=== PATIENT | female | born 1980 | race Caucasian/White ===

== ENCOUNTER 2017-05-11 23:10 | Emergency (ER) | payer OTHER ==
[~2017-05-11] VITALS: Ht 160 cm; Wt 65.0 kg
[2017-05-11 23:13] VITALS: BP 114/61; PULSE 106; RESP 16; TEMP 98.9; O2SAT 99
[2017-05-11] MEDS ORDERED: HUMALOG SQ (23:29)
[2017-05-11] MEDS ORDERED: MULTTAB20 (23:29)
[2017-05-11] MEDS ORDERED: EMTR1TAB PO (23:29)
[2017-05-11] MEDS ORDERED: SYNT175T PO (23:29)
[2017-05-11] MEDS ORDERED: FISH1000 (23:29)
[2017-05-11] MEDS ORDERED: DOXY10TA (23:32)
[2017-05-12] MEDS ORDERED: SODIUM CHLOR 0.9% 1000 ML INJ 1,000 ML IV ONE (00:30)
[2017-05-12 00:55] LABS: AUTOMATED NEUTROPHIL # 6.6 TH/MM3 (1.8-7.7); BASOPHIL % 0.3 % (0.0-2.0); EOSINOPHIL # 0.2 TH/MM3 (0-0.4); EOSINOPHIL % 1.8 % (0.0-4.0); HEMATOCRIT 36.1 % (35.0-46.0); HEMO FLAGS DIFF FINAL; LYMPH % 29.5 % (9.0-44.0); LYMPHOCYTE # 3.1 TH/MM3 (1.0-4.8); MEAN CELL VOLUME 95.6 FL (80.0-100.0); MEAN CORPUSCULAR HEMOGLOBIN 33.4 PG (27.0-34.0); MEAN CORPUSCULAR HGB CONC 34.9 % (32.0-36.0); MONO % 5.2 % (0.0-8.0); NEUT % 63.2 % (16.0-70.0); PLATELET COUNT 273 TH/MM3 (150-450); RED BLOOD COUNT 3.78 MIL/MM3 (4.00-5.30); RED CELL DISTRIBUTION WIDTH 12.9 % (11.6-17.2); WHITE BLOOD COUNT 10.5 TH/MM3 (4.0-11.0)
[2017-05-12 00:56] LABS: INTERNATIONAL NORMALIZED RATIO 0.8 RATIO; PROTHROMBIN TIME - PATIENT 9.2 SEC (9.8-11.6)
[2017-05-12 01:05] LABS: ALT (GPT) 23 U/L (10-53); ANION GAP 4 MEQ/L (5-15); AST (GOT) 21 U/L (15-37); BICARBONATE 28.9 MEQ/L (21.0-32.0); BLOOD UREA NITROGEN 6 MG/DL (7-18); CHLORIDE 104 MEQ/L (98-107); GLOMERULAR FILTRATION RATE 121 ML/MIN (>89); POTASSIUM 3.5 MEQ/L (3.5-5.1); SODIUM (NA) 137 MEQ/L (136-145)
[2017-05-12 01:06] LABS: ALKALINE PHOSPHATASE 86 U/L (45-117); TOTAL BILIRUBIN ADULT 0.1 MG/DL (0.2-1.0)
[2017-05-12 01:29] LABS: BETA HCG QUANT 179713 MIU/ML (0-5)
[2017-05-12 03:29] LABS: CHLAMYDIA PCR NOT DETECTED (NOT DETECT); NEISSERIA PCR NOT DETECTED (NOT DETECT)
--- NOTE | 2017-05-12 03:33 | RADRPT ---
EXAM DATE/TIME: 05/12/2017 02:24 [place] COMPARISON: No previous studies available for comparison. INDICATIONS : Bleeding with . LAB(S): Beta-hC MEDICAL HISTORY : . Miscarriage x 2. Thyroid disease. Diabetes. SURGICAL HISTORY : Dilation and curettage. Hysterscopy with polyp removal. ENCOUNTER: Initial ACUITY: 1 day PAIN SCORE: 0/10 LOCATION: Bilateral pelvis MEASUREMENTS: UTERUS: 15.1 x 10.1 x 8.5 cm ENDOMETRIAL STRIPE: >20 mm RIGHT OVARY: Non visualized LEFT OVARY: 2.6 x 2.0 x 1.5 cm FREE FLUID: No CROWN RUMP LENGTH: 4.9 cm = 11 WKS 5 DAYS FHR: 163 BPM FINDINGS: UTERUS: Intrauterine estimated at 11 weeks 5 days. Yolk sac present. heart tones and 63 beats per minute. RIGHT OVARY: Right ovary not visualized. LEFT OVARY: Ovary contains no mass or significant cystic lesion. MISCELLANEOUS: No free fluid. CONCLUSION: 1. Intrauterine estimated 11 weeks 5 days. 2. Nonvisualization right ovary. Austin Bob MD on May 12, 2017 at 3:29 Board Certified Radiologist. This report was verified electronically.
[2017-05-12 03:40] LABS: BLOOD, URINE SMALL (NEG); GLUCOSE,URINE 70 mg/dL (NEG); KETONE, URINE NEG (NEG); NITRITE,URINE NEG (NEG); SQUAMOUS EPITHELIAL CELL URINE 1 /hpf (0-5); TRANSITIONAL EPI CELLS, URINE <1 /hpf; URINE COLOR COLORLESS (YELLW/STRAW)
[2017-05-12 03:41] LABS: COMMENT (UR) CULT NOT INDICATED; CULTURE IF INDICATED CULT NOT INDICATED
--- NOTE | 2017-05-12 04:01 | PD ---
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 And also notes some lower abdominal cramping and denies fever chill vomiting. She also denies vaginal discharge but does note some discomfort with urination. (Kayla Mohr MD) PFSH Past Medical History Diabetes: Yes Patient Takes Glucophage: No Thyroid Disease: Yes ?: : 3 Miscarriage: 2 Dilation and Curettage (D&C): Yes (Kayla Mohr MD) Past Surgical History Other Surgery: Yes (historoscopy) (Kayla Mohr MD) Social History Alcohol Use: Yes ( not now while ) Tobacco Use: No Substance Use: No (Kayla Mohr MD) Allergies-Medications (Allergen,Severity, Reaction): Coded Allergies: No Known Allergies (Unverified , 05/11/17) Reported Meds & Prescriptions Reported Meds & Active Scripts Active Tylenol (Acetaminophen) 325 Mg Tab 650 Mg PO Q4H PRN Metrogel Vaginal Gel (Metronidazole Vaginal Gel) 0.75 % Gel 1 Appl VAGINAL HS 5 Days Reported Diclegis (Doxylamine-Pyridoxine) 10-10 Mg Tab Fish Oil ([place]-3 Fatty Acids) 1,000 Mg Cap Multi 27-0.8 mg ( Vit W/ Ferrous Fumara) 1 Tab Tab Truvada (Emtricitabine-Tenofovir Disoproxil Fumarate) 200-300 Mg Tab 1 Tab PO DAILY Synthroid (Levothyroxine Sodium) 175 Mcg Tab 175 Mcg PO DAILY Humalog Inj (Insulin Human Lispro) 1,000 Unit/10 Ml Vial 1-9 Units SQ ACHS Max dose at bedtime:( )units; sugars< 70,(0)units; sugars 150-199,(1)unit; sugars 200-249,(3)units; sugars 250-299,(5)units; sugars 300-349,(7)units; sugars more than 349,(9)units. (Marilu Ying MD) Review of Systems ROS Limitations: Clinical Condition General / Constitutional: No: Fever, Chills, Weight Gain, Weight Loss, Other Eyes: No: Diploplia, Blurred Vision, Photophobia, Drainage, Redness, Foreign Body Sensation, Pain, Tearing, Blind Spots, Visual changes, Blindness, Other HENT: No: Headaches, Vertigo, Lightheadedness, Sore Throat, Rhinitis, Rhinorrhea, Congestion, Nosebleed, Neck Stiffness, Neck Pain, Masses, Gingival Bleeding, Dental Difficulties, Ear Discharge, Earache, Other Cardiovascular: No: Chest Pain or Discomfort, Palpitations, Irregular Rhythm, Tachycardia, Diaphoresis, Syncope, Dyspnea on exertion, Varicosities, Edema, Cyanosis, Varicosities, Phlebitis, Claudication, Other Respiratory: No: Cough, Shortness of Breath, Wheezing, Sneezing, Orthopnea, Hemoptysis, Stridor, Night Sweats, Pleuritic Pain, Other Gastrointestinal: No: Nausea, Vomiting, Diarrhea, Abdominal Pain, Hematemesis, Hematochezia, Constipation, Changes in Bowel Habits, Indigestion, Dysphagia, Loss of Appetite, Other Genitourinary: Positive: Dysuria, Pelvic Pain, Vaginal Bleeding, No: Urgency, Frequency, Nocturia, Hematuria, Decreased Urinary Output, Oliguria, Hesitancy, Dribbling, Incontinence, Flank Pain, Dyspareunia, Discharge, Dysmenorrhea, Menorrhagia, Metorrhagia, Other Musculoskeletal: No: Myalgias, Arthralgias, Limited ROM, Weakness, Cramping, Edema, Pain, Atrophy, Other Skin: No Rash, No Itching, No Dryness, No Lumps, No Hives, No Change in Pigmentation, No Change in nails, No Alopecia, No Lesions, No Breast Lumps, No Breast Tenderness, No Breast Swelling, No Other Neurologic: No: Weakness, Dizziness, Syncope, Focal Abnormalities, Coordination Problem, Tremor, Ataxia, Headache, Change in Mentation, Slurred Speech, Paresthesia, Incontinence, Seizures, Sensory Disturbance, Other Psychiatric: No: Anxiety, Depression, Suicidal Ideations, Disorder of Thought, Mood Disorder, Substance Abuse, Homicidal Ideation, Other Endocrine: No: Heat Intolerance, Cold Intolerance, Polyuria, Polydipsia, Other Hematologic/Lymphatic: No: Easy Bruising, Lymph Node Enlargement, Other (Kayla Mohr MD) Physical Exam Exam Limitations: Clinical Condition Narrative GENERAL: 36-year-old female in no acute distress SKIN: Focused skin assessment warm/dry.no lesions no cyanosis no erythema HEAD: Atraumatic. Normocephalic. EYES: Pupils equal and round and reactive . No scleral icterus. No injection or drainage. ENT: No nasal bleeding or discharge. Mucous membranes pink and moist. NECK: Trachea midline. No JVD. CARDIOVASCULAR: S1-S2 appreciated. Regular rate and rhythm. No murmur appreciated. Pulses normal throughout. RESPIRATORY: No accessory muscle use. Clear to auscultation. Breath sounds equal bilaterally. GASTROINTESTINAL: Abdomen soft, non-tender, nondistended. Hepatic and splenic margins not palpable. Bowel sounds normal. No peritoneal signs. /pelvic MUSCULOSKELETAL: No obvious deformities. No clubbing. No cyanosis. No edema. NEUROLOGICAL: Awake and alert and oriented 3.. No obvious cranial nerve deficits. Motor and sensory exam grossly within normal limits. Normal speech. No meningeal signs. PSYCHIATRIC: Appropriate mood and affect; insight and judgment normal. No suicidal or homicidal ideation. (Kayla Mohr MD) Data Data Orders Complete Blood Count With Diff (05/12/17 00:18) Comprehensive Metabolic Panel (05/12/17 00:18) Prothrombin Time / Inr (Pt) (05/12/17 00:18) Sodium Chlor 0.9% 1000 Ml Inj (Ns 1000 M (05/12/17 00:30) Wet Prep Profile (05/12/17 00:46) Gc And Chlamydia Pcr (05/12/17 00:46) Us Pelvis (Ques Preg/Ectopic) (05/12/17 ) Beta Hcg (Quant/Titer) (05/12/17 00:30) Ed Urine Pregnancytest Poc (05/12/17 03:21) Urinalysis - C+S If Indicated (05/12/17 03:25) (Marilu Ying MD) [facility] Medical Decision Making Medical Screen Exam Complete: Yes Emergency Medical Condition: Yes Medical Record Reviewed: Yes Interpretation(s) Wet prep shows clue cells UA negative for infection Differential Diagnosis Differential diagnosis bacterial vaginosis and cervicitis threatened vaginal bleeding in the first trimester (Kayla Mohr MD) 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 (Marilu Ying MD) Diagnosis Primary Impression: vaginal bleeding in the first trimester Additional Impression: Bacterial vaginosis Patient Instructions: Bacterial Vaginosis (DC), First Trimester Vaginal Bleed ( ED), General Instructions Additional Instructions: Stay well-hydrated Take Tylenol extra strength as needed for pain Use MetroGel vaginal as directed Turn if the bleeding persists or increases if there is increased pelvic pain fever chills passing out Follow-up with your store administrator called on the next business day to schedule an appointment Scripts Acetaminophen (Tylenol)325 Mg [id number] Mg PO Q4H PRN (pain) #15 TAB Ref 0 Prov:Kayla Mohr MD 05/12/17 Metronidazole Vaginal Gel (Metrogel Vaginal Gel)0.75 % Gel1 Appl VAGINAL HS 5 Days Ref 0 Prov:Kayla Mohr MD 05/12/17 Kayla Mohr MD May 12, 2017 04:01 Marilu Ying MD May 28, 2017 16:55 Basophils (%) (Auto) 0.3 % Neutrophils # (Auto) 6.6 TH/MM3 Lymphocytes # (Auto) 3.1 TH/MM3 Monocytes # (Auto) 0.5 TH/MM3 Eosinophils # (Auto) 0.2 TH/MM3 Basophils # (Auto) 0.0 TH/MM3 CBC Comment DIFF FINAL Differential Comment Prothrombin Time 9.2 SEC Prothromb Time International 0.8 RATIO Ratio Sodium Level 137 MEQ/L Potassium Level 3.5 MEQ/L Chloride Level 104 MEQ/L Carbon Dioxide Level 28.9 MEQ/L Anion Gap 4 MEQ/L Blood Urea Nitrogen 6 MG/DL Creatinine 0.57 MG/DL Estimat Glomerular Filtration 121 ML/MIN Rate Random Glucose 62 MG/DL Calcium Level 8.6 MG/DL Total Bilirubin 0.1 MG/DL Aspartate Amino Transf 21 U/L (AST/SGOT) Alanine Aminotransferase 23 U/L (ALT/SGPT) Alkaline Phosphatase 86 U/L Total Protein 6.3 GM/DL Albumin 2.9 GM/DL Human Chorionic Gonadotropin, [id number] MIU/ML Quant Clue Cells (Wet Prep) PRESENT Vaginal Trichomonas (Wet Prep) NONE SEEN Vaginal Yeast (Wet Prep) NONE SEEN Chlamydia trachomatis DNA NOT DETECTED (PCR) Neisseria gonorrhoeae DNA NOT DETECTED (PCR) Urine Color COLORLESS Urine Turbidity CLEAR Urine pH 7.0 Urine Specific [place] 1.002 Urine Protein NEG mg/dL Urine Glucose (UA) 70 mg/dL Urine Ketones NEG mg/dL Urine Occult Blood SMALL Urine Nitrite NEG Urine Bilirubin NEG Urine Urobilinogen LESS THAN 2.0 MG/DL Urine Leukocyte Esterase NEG Urine WBC LESS THAN 1 /hpf Urine Squamous Epithelial 1 /hpf Cells Urine Transitional Epithelial <1 /hpf Cells Microscopic Urinalysis Comment CULT NOT INDICATED MDM Medical Decision Making Medical Screen Exam Complete: Yes Emergency Medical Condition: Yes Medical Record Reviewed: Yes Interpretation(s) Wet prep shows clue cells UA negative for infection Differential Diagnosis Differential diagnosis bacterial vaginosis and cervicitis threatened vaginal bleeding in the first trimester Diagnosis Primary Impression: vaginal bleeding in the first trimester Additional Impression: Bacterial vaginosis Patient Instructions: Bacterial Vaginosis (DC), First Trimester Vaginal Bleed ( ED), General Instructions Additional Instructions: Stay well-hydrated Take Tylenol extra strength as needed for pain Use MetroGel vaginal as directed Turn if the bleeding persists or increases if there is increased pelvic pain fever chills passing out Follow-up with your store administrator called on the next business day to schedule an appointment Scripts Acetaminophen (Tylenol)325 Mg [id number] Mg PO Q4H PRN (pain) #15 TAB Ref 0 Prov:Kayla Mohr MD 05/12/17 Metronidazole Vaginal Gel (Metrogel Vaginal Gel)0.75 % Gel1 Appl VAGINAL HS 5 Days Ref 0 Prov:Kayla Mohr MD 05/12/17 Kayla Mohr MD May 12, 2017 04:01
[2017-05-12] MEDS ORDERED: TYLE325T PO (04:12)
[2017-05-12] MEDS ORDERED: METR0.7528 VAGINAL (04:12)
== END 2017-05-12 04:29 | disposition home or self-care (01) ==
LOC: NEPC 23:10
DX: O46.91 Antepartum hemorrhage, unspecified, first trimester (principal); O23.591 Infection of other part of genital tract in pregnancy, first trimester; N76.0 Acute vaginitis; B96.89 Other specified bacterial agents as the cause of diseases classified elsewhere; O24.911 Unspecified diabetes mellitus in pregnancy, first trimester; Z79.4 Long term (current) use of insulin
CPT/HCPCS: 76700; 80053; 81001; 84702; 84703; 85025; 85610; 87210; 87491; 87591; 96360; 99285; J7030